=== PATIENT | female | born 1945 | race Caucasian/White ===

== ENCOUNTER → 2017-12-19 | Outpatient (CLI) | payer OTHER ==
[~2017-12-19] MED LIST: ALPHA LIPOIC ACID; CLONIDINE HCL0.1 MG PO; DEPO-ESTRAD5 MG/1 ML IM; DIATRIZOATE MEGL/DIATRIZOA SOD 30 ML BTL PO ONE; HOLY BASIL; IOPAMIDOL 370 MG/ML 200 ML INFUS..BTL INJ ONE; MAGNESIUM PO; MAXIDE PO; MAXZIDE 37.5 M1 EACH PO; PHENERGAN SUPP25 MG PO; SODIUM CHLORIDE 0.9% 50ML 100 ML ONE; VITAMIN B12; VITAMIN B12 IM; Z.0.IBUPROFEN400 MG PO; Z.0.MULTIVITAMINS1 E; Z.0.OMEPRAZOLE40 MG PO; Z.6.FISH OIL 1,0001 PO; ZOFRAN ODT8 MG PO
[2017-12-19 11:16] LABS: BLOOD UREA NITROGEN 14 mg/dL (7-26); BUN/CREATININE RATIO 18 (6-25); CREATININE, SERUM 0.77 mg/dL (0.57-1.11); EST GLOMERULAR FILTRATION RATE > 60 ML/MIN (60-)
--- NOTE | 2017-12-19 13:48 | Diagnostic Imaging Report ---
CTA lower extremity, with contrast. History: Cold pulseless feet with ulcer on the right foot. Comparison: None available. Technique: Multidetector [address] scanning of the pelvis and bilateral lower extremities after intravenous administration of 100 cc of Isovue-370. Coronal and sagittal multiplanar, MIP and 3-D volume-rendering reformations were obtained. IV CONTRAST:100mL of Isovue-370 ORAL CONTRAST: None RADIATION DOSE: Total DLP: 405.98 mGy*cm Estimated Effective Dose: DLP x 0.015 mSv COMPLICATIONS: None Discussion: Pelvis vessels: Distal aorta, bilateral common, external and internal iliac arteries are patent with diffuse atherosclerotic calcification. Right lower extremity: Patent profunda and superficial femoral artery. No focal stenosis. No appreciable blood flow below the knee in the popliteal artery is likely related to the bolus timing. Left lower extremity: Patent profunda and superficial femoral artery. No focal stenosis. No appreciable blood flow below the knee in the popliteal artery is likely related to the bolus timing. There are venous varicosities involving the left posterior thigh. There is a 4 cm left posterior popliteal cyst. Other: The bladder, pelvic organs and visualized bowel and bones are normal in appearance. There is no evidence of free fluid or adenopathy. IMPRESSION: 1. Atherosclerotic calcification within the pelvic vessels and aorta. No focal stenosis. 2. Widely patent superficial femoral arteries bilaterally without stenosis. 3. No appreciable blood flow past the knee joint in either popliteal artery or calves. 4. Assessment of the runoff vessels below the knee cannot be made-consider additional imaging with an angiogram if clinically warranted. 5. Left popliteal fossa cyst. Signed by: Dr. Evangelista Denis DO on 12/19/2017 1:45 PM
== END ==
LOC: CT 10:23
PROVIDERS: ATTEND Internal Medicine
DX: I70.298 Other atherosclerosis of native arteries of extremities, other extremity (principal)
CPT/HCPCS: 36415; 73706; 82565; 84520; 93306; Q9967